=== PATIENT | female | born 1995 | race African-American/Black ===

== ENCOUNTER 2020-01-26 19:40 | Emergency (ER) | payer OTHER, SELFPAY ==
--- NOTE | ~2020-01-26 | US_ITS ---
EXAMINATION: US OB <=14 wk fetus w TV DATE: 01/26/2020 21:48 INDICATION: Vaginal bleeding during first trimester TECHNIQUE: Real-time pelvic ultrasound utilizing both a transvaginal and transabdominal probe was pe rformed. The interpreting radiologist was not present for the study. COMPARISON: None. FINDINGS: The uterus measures 8.0 x 4.8 x 5.2 cm. There is a tiny gestational sac within the endometrial compl ex with no discernible yolk sac or pole. The presumptive mean sac diameter measures 3-4 mm, whi ch correlates with an estimated gestational age of 5 weeks and 0 days. The right ovary measures 2.4 x 1.9 x 1.5 cm. The left ovary measures 2.0 x 1.4 x 1.3 cm. Vascular shaneka w identified in both ovaries on color Doppler. There is small amount of likely physiologic free fluid in the cul-de-sac. IMPRESSION: 1. 3-4 mm likely gestational sac within the endometrial complex. No discernible yolk sac or darrell e likely due to early stage of . 2. Gestational age by ultrasound based upon mean sac diame ter of 5 weeks 0 day(s) +/- 3 day(s) with ultrasound estimated date of delivery (ELLA) of 09/27/2020. Reviewed, dictated and finalized at location A. IMPRESSION: 1. 3-4 mm likely gestational sac within the endometrial complex. No discernible yolk sac or pole likely due to early stage of . 2. Gestational age by ultrasound based upon mean sac diameter of 5 weeks 0 day(s) +/- 3 day(s ) with ultrasound estimated date of delivery (ELLA) of 09/27/2020.
[2020-01-26 19:41] VITALS: BP 122/63; PULSE 92; RESP 16; TEMP 36.3; O2SAT 100
--- NOTE | 2020-01-26 20:07 | ED.GENADULT ---
HPI - General Adult General Chief complaint: Vaginal Bleeding Stated complaint: vaginal bleeding, Time Seen by Provider: 01/26/20 19:45 Source: RN notes reviewed History of Present Illness HPI narrative: Patient presents emergency department from home for vaginal bleeding. Patient states that she is G2, P1 had a home test this past week that was positive last menstrual period was December 23, 2019. Patient states she noted some mild vaginal spotting today as well as lower abdominal pain described as a cramping. She denies any fevers or chills nausea vomiting or any other symptoms. States she has had no formal work-up for this current Related Data Home Medications Medication Instructions Recorded Confirmed No Home Medications 01/26/20 01/26/20 Allergies Allergy/AdvReac Type Severity Reaction Status Date / Time No Known Allergies Allergy Unverified 01/26/20 19:43 Review of Systems Review of Systems: Narrative: Gen.: Denies fevers or chills ENT: Denies congestion Respiratory: Denies shortness of breath or cough CV: Denies chest pain or palpitations GI: Reports lower abdominal cramping nausea, emesis or diarrhea see HPI Musculoskeletal: Denies back pain or muscle pain Neuro: Denies numbness, tingling, weakness or focal weakness Skin: Denies rash Except as documented, all other systems reviewed and negative PMFSH Past Medical History Medical History (Updated 01/26/20 @ 22:21 by Nishant German DO) Patient denies significant medical history Social History Social History (Updated 01/26/20 @ 20:08 by Nishant German DO) Smoking status: Never smoker Gender identity (if verbalized by the patient): Female Exam Narrative: Exam Narrative: APPEARANCE: No acute distress, nontoxic, resting in bed EYES: EOMI HEENT: Normocephalic, atraumatic, OMM RESPIRATORY: No respiratory distress Clear to auscultation bilaterally with no rhonchi wheezing or rales. CARDIOVASCULAR: Regular rate and rhythm without murmurs rubs or gallops. ABDOMINAL: Soft, nontender, nondistended, no rebound or guarding : Normal external exam, small amount of dark maroon blood in vaginal canal cervix is closed MUSCULOSKELETAl: Moves all extremities. No clubbing, cyanosis or edema. NEURO: Awake and alert. Following commands, speech normal, no focal deficits SKIN:: Warm, dry. No rashes lesions or abrasions PSYCHIATRIC: Normal affect/mood, Course Course Emergency Course: Discussed with Dr. Cole presentation work-up. Agrees with plan for discharge and follow-up as an outpatient Discussed with patient results of workup and diagnosis. Discussed need for follow-up with primary care, proper use of medication, and reasons to return to the emergency department. Patient understands and agrees to current treatment plan Vital Signs Vital signs: Vital Signs Temperature 97.3 F L 01/26/20 19:41 Pulse Rate 92 01/26/20 19:41 Respiratory Rate 16 01/26/20 19:41 Blood Pressure 122/63 01/26/20 19:41 Pulse Oximetry 100 01/26/20 19:41 Temperature 97.3 F L 01/26/20 19:41 Pulse Rate 92 01/26/20 19:41 Respiratory Rate 16 01/26/20 19:41 Blood Pressure 122/63 01/26/20 19:41 Pulse Oximetry 100 01/26/20 19:41 Medical Decision Making Vital Signs Vital Signs: Vital Signs Temperature 97.3 F L 01/26/20 19:41 Pulse Rate 92 01/26/20 19:41 Respiratory Rate 16 01/26/20 19:41 Blood Pressure 122/63 01/26/20 19:41 Pulse Oximetry 100 01/26/20 19:41 Temperature 97.3 F L 01/26/20 19:41 Pulse Rate 92 01/26/20 19:41 Respiratory Rate 16 01/26/20 19:41 Blood Pressure 122/63 01/26/20 19:41 Pulse Oximetry 100 01/26/20 19:41 Lab Data Result diagrams: 01/26/20 20:27 Labs: Lab Results 01/26/20 01/26/20 01/26/20 Range/Units 20:27 20:27 20:27 WBC 11.1 H (4.5-10.0) K/mm3 RBC 4.10 L (4.2-5.4) M/mm3 Hgb 11.0 L (12.0-15.0) g/dL Hct 34.4 L
[2020-01-26 20:32] LABS: Basophils Absolute Auto 0.1 K/mm3 (0.0-0.1); Eosinophils Absolute Auto 0.9 K/mm3 (0-0.3); Eosinophils Percent Auto 8.2 % (0-4.4); Hematocrit 34.4 % (37.0-47.0); Immature Granulocyte Absolute 0.05 K/mm3 (0.00-0.031); Immature Granulocyte Percent A 0.4 % (0-0.5); Lymphocytes Absolute Auto 2.49 K/mm3 (0.9-3.2); Lymphocytes Percent Auto 22.4 % (18.3-44.2); Mean Corpuscular Hemoglobin 26.8 pg (26-34); Mean Corpuscular Volume 83.9 fl (80-100); Mean Platelet Volume 11.3 fl (7.4-10.4); Monocytes Absolute Auto 0.8 K/mm3 (0.1-0.6); Monocytes Percent Auto 7.3 % (2.6-8.5); Neutrophils Absolute Auto 6.8 K/mm3 (1.3-6.7); Neutrophils Percent Auto 60.7 % (45.5-73.1); Platelet Count Result 319 k/mm3 (150-375); Red Cell Distribution Width 14.6 % (11.5-14.5); White Blood Count 11.1 K/mm3 (4.5-10.0)
[2020-01-26 20:45] LABS: Ovalocytes 1+ (NORMAL); Platelet Estimate Adequate (Adequate)
[2020-01-26] MEDS: SODIUM CHLORIDE 0.9% IV 1,000 ML 999 ML IV CONT (20:50)
--- NOTE | 2020-01-26 21:10 | PC.NURSE ---
pt at ultrasound at this time
[2020-01-26 22:29] VITALS: BP 121/76; PULSE 77; RESP 16; TEMP 36.2; O2SAT 100
== END 2020-01-26 22:30 | disposition home or self-care (01) ==
PROVIDERS: Emergency Provider Emergency Medicine
DX: O20.0 Threatened abortion (principal); Z3A.01 Less than 8 weeks gestation of pregnancy
CPT/HCPCS: 36415; 76801; 76817; 81025; 84702; 85025; 85461; 96361; 96365; 99284; J0131; J7030

== ENCOUNTER 2020-02-02 23:31 | Emergency (ER) | payer OTHER, SELFPAY ==
--- NOTE | ~2020-02-02 | US_ITS ---
EXAMINATION: US OB <=14 wk fetus w TV DATE: 02/03/2020 01:49 INDICATION: Pelvic cramping and vaginal bleeding. TECHNIQUE: Real-time pelvic ultrasound utilizing both a transvaginal and transabdominal probe was pe rformed. The interpreting radiologist was not present for the study. COMPARISON: 01/26/2020 FINDINGS: The uterus measures 8.7 x 4.5 x 5.2 cm. Again seen is a 4 mm likely gestational sac within the endom etrial complex with double decidua sign but no discernible yolk sac or pole. The mean sac diame ter would correlate with an estimated gestational age of 5 weeks and 0 days. The right ovary measures 2.9 x 1.4 x 2.1 cm. The left ovary is not visualized. There is a tiny amount of free fluid in the cul-de-sac. IMPRESSION: 1. 4 mm likely intrauterine gestational sac which has not significant changed in size and which remai ns without discernible no yolk sac or pole. The absence of expected progression elevates concer n for failed . The absence of a definitive pole ectopic cannot be absolutely excluded but is considered significantly less likely. Recommend continued follow-up with serial beta -hCG levels and repeat imaging as clinically indicated. 2. Gestational age by ultrasound based upon mean sac diameter of 5 weeks 0 day(s) +/- 3 day(s) with ultrasound estimated date of delivery (ELLA) of 10/05/2020. Reviewed, dictated and finalized at location A. IMPRESSION: 1. 4 mm likely intrauterine gestational sac which has not significant changed i n size and which remains without discernible no yolk sac or pole. The abs ence of expected progression elevates concern for failed . The absence of a definitive pole ectopic cannot be absolutely excluded but is considered significantly less likely. Recommend continued follow-up with se rial beta-hCG levels and repeat imaging as clinically indicated. 2. Gestational age by ultrasound based upon mean sac diameter of 5 weeks 0 day (s) +/- 3 day(s) with ultrasound estimated date of delivery (ELLA) of 10/05/2020.
[2020-02-02 23:35] VITALS: BP 125/77; PULSE 89; RESP 15; TEMP 36.4; O2SAT 100
--- NOTE | 2020-02-02 23:42 | ED.FEMALEGU ---
HPI - Female Genitourinary General Chief complaint: Vaginal Bleeding Stated complaint: Possible Misscarrige Time Seen by Provider: 02/02/20 23:41 History of Present Illness HPI Narrative: 24 yo female at approximately 6 weeks gestation presents for vaginal bleeding. She was seen here on 01/25 for vaginal bleeding. US she likely early . She has continued to have spotting since that time and now it has turn heavier. She is also now having moderate cramping. Related Data Home Medications Medication Instructions Recorded Confirmed cephalexin 02/02/20 Allergies Allergy/AdvReac Type Severity Reaction Status Date / Time No Known Allergies Allergy Unverified 02/02/20 23:38 Review of Systems Review of Systems: All systems reviewed & are unremarkable except as noted in HPI and below Cardiovascular: Cardiovascular: Denies chest pain Respiratory: Respiratory: Denies dyspnea Gastrointestinal: Gastrointestinal: Reports abdominal pain Genitourinary: Genitourinary: Denies hematuria and Denies dysuria Neurologic: Denies weakness PMFSH Past Medical History Medical History Patient denies significant medical history Social History Social History Smoking status: Never smoker Gender identity (if verbalized by the patient): Female Exam Const: General: healthy appearing, no acute distress and alert Orientation/consciousness: patient oriented x3 HENMT: Head: normal to inspection Neck: Neck: normal visual inspection and no lymphadenopathy Chest: Chest palpation & inspection: no tenderness Resp: Effort & Inspection: normal respiratory effort Auscultation: clear to auscultation bilaterally, no rales, no rhonchi and no wheezes Cardio: Jugular venous distension: no JVD Rate: regular rate Rhythm: regular rhythm Heart sounds: no murmurs GI: Inspection: non-distended GI Palp: Yes Soft to palpation and No Tenderness to palpation present (GI) Skin: General skin exam: normal color Neuro: General: patient oriented x3 and moves all extremities Speech: normal speech Extrem: General: no edema Psych: Appearance: well kempt Affect: normal affect Course Vital Signs Vital signs: Vital Signs Temperature 36.4 C 02/02/20 23:35 Pulse Rate 89 02/02/20 23:35 Respiratory Rate 15 02/02/20 23:35 Blood Pressure 125/77 02/02/20 23:35 Pulse Oximetry 100 02/02/20 23:35 Temperature 36.4 C 02/02/20 23:35 Pulse Rate 77 02/03/20 02:31 Respiratory Rate 18 02/03/20 02:31 Blood Pressure 122/82 02/03/20 02:31 Pulse Oximetry 100 02/03/20 02:31 MDM - Female Genitourinary MDM Narrative Medical decision making narrative: US from last visit showed likely early , but not definitive. Obtain US today to r/o ectopic. Shows less than expected interval increase in size. bHcg increased, but less than expected. Case discussed with Dr. Mccormick. She can follow-up i the next few days as planned. Medical Records Attestation: I reviewed the patient's medical records. Lab Data Attestation: I reviewed the patient's lab results. Labs: Lab Results 02/03/20 02/03/20 Range/Units 00:02 00:06 Beta HCG, Quant 1935.60 mIU/ML Urine Color Straw (Yellow) Urine Appearance Clear (Clear) Urine pH 7.0 (5.0-9.0) Ur Specific Duncan 1.018 (1.001-1.035) Urine Protein Negative (Negative) mg/dL Urine Glucose (UA) Negative (Negative) mg/dL Urine Ketones Negative (Negative) mg/dL Ur Blood (Man) 3+ H (Negative) Urine Nitrate Negative (Negative) Urine Bilirubin Negative (Negative) Urine Urobilinogen Negative (<2.0) mg/dL Leukocyte Esterase Rfl Trace H (Negative) RICARDA/UL Urine RBC >75 H (0-2) /hpf Urine WBC 0-3 /hpf Ur Squamous Epith Cells Few (Few) /hpf Urine Mucus Rare /lpf Discharge Plan Discharge Clinical
[2020-02-03 00:25] LABS: Add Urine Microscopic? YES; Appearance Urine Clear (Clear); Bilirubin Urine Negative (Negative); Blood Urine 3+ (Negative); Color Urine Straw (Yellow); Glucose Urine UA Negative (Negative); Ketones Urine Negative (Negative); Leukocyte Esterase Ur Trace LEU/UL (Negative); Mucus Urine Rare /lpf; Nitrate Urine Negative (Negative); Protein Urine Negative (Negative); RBC Urine >75 /hpf (0-2); Specific Grav Ur 1.018 (1.001-1.035); Squamous Epithelial Cell Urine Few /hpf (Few); Urobilinogen Urine Negative mg/dL (<2.0); WBC Urine 0-3 /hpf
[2020-02-03 01:15] VITALS: BP 119/89; PULSE 80; RESP 16; O2SAT 99
[2020-02-03 02:31] VITALS: BP 122/82; PULSE 77; RESP 18; O2SAT 100
== END 2020-02-03 02:35 | disposition home or self-care (01) ==
PROVIDERS: Emergency Provider Emergency Medicine
DX: O20.0 Threatened abortion (principal); Z3A.01 Less than 8 weeks gestation of pregnancy
CPT/HCPCS: 36415; 76801; 76817; 81001; 84702; 99284

== ENCOUNTER 2020-02-27 15:19 | Emergency (ER) | payer OTHER, SELFPAY ==
[2020-02-27 16:11] VITALS: BP 123/59; PULSE 75; RESP 15; TEMP 36.7; O2SAT 100
--- NOTE | 2020-02-27 16:30 | ED.SKABFB ---
HPI - Skin/Abscess/Foreign Bdy General Chief complaint: Skin/Abscess/Foreign Body <Everton Evangelista PA-C - Last Filed: 02/27/20 16:40> Stated complaint: rash <DWAYNE Chance Last Filed: 02/27/20 16:40> Time Seen by Provider: 02/27/20 16:17 <Everton Evangelista PA-C - Last Filed: 02/27/20 16:40> Source: patient <Everton Evangelista PA-C - Last Filed: 02/27/20 16:40> Mode of arrival: ambulatory <DWAYNE Chance Last Filed: 02/27/20 16:40> Limitations: no limitations <DWAYNE Chance Last Filed: 02/27/20 16:40> History of Present Illness HPI narrative: Patient is a 24-year-old female who presents to emergency department for evaluation of rash that is been present for several days noting small pustules in the armpits and extremities patient is unsure as to the etiology of the cause denies other family members with similar occurrence presents per private vehicle in no distress <Everton Evangelista PA-C - Last Filed: 02/27/20 16:40> Related Data Home medications: Home Medications Medication Instructions Recorded Confirmed cephalexin 02/02/20 <DWAYNE Chance Last Filed: 02/27/20 16:40> Allergies/Adverse reactions: Allergies Allergy/AdvReac Type Severity Reaction Status Date / Time No Known Allergies Allergy Unverified 02/02/20 23:38 <Everton Evangelista PA-C - Last Filed: 02/27/20 16:40> Review of Systems Review of Systems: All systems reviewed & are unremarkable except as noted in HPI and below <Everton Evangelista PA-C - Last Filed: 02/27/20 16:40> PMFSH Past Medical History Medical History: Medical History Patient denies significant medical history <DWAYNE Chance Last Filed: 02/27/20 16:40> Social History Social History: Social History Smoking status: Never smoker Gender identity (if verbalized by the patient): Female <DWAYNE Chance Last Filed: 02/27/20 16:40> Exam Narrative: Exam Narrative: GENERAL: Well-appearing, well-nourished, and in no acute distress. HEAD: Normocephalic, atraumatic. EYES: PERRLA and EOMI. ENT: Nares clear, no rhinorrhea or epistaxis. Mucous membranes moist. CHEST: Clear to auscultation. No respiratory distress. No wheezes rales or rhonchi HEART: Regular rate and rhythm. No murmur heard. EXTREMITIES: Normal range of motion. No edema. SKIN: Warm, dry, small pustules in the axilla some on the torso extremity and breast NEURO: No focal deficits. Alert and oriented x3. PSYCH: Normal mood and affect. <DWAYNE Chance Last Filed: 02/27/20 16:40> Course Course Emergency Course: Patient in the room in no distress aware of case findings treatment plan and diagnosis agreeing to follow-up as directed with primary care <DWAYNE Chance Last Filed: 02/27/20 16:40> Vital Signs Vital signs: Vital Signs Temperature 98.1 F 02/27/20 16:11 Pulse Rate 75 02/27/20 16:11 Respiratory Rate 15 02/27/20 16:11 Blood Pressure 123/59 L 02/27/20 16:11 Pulse Oximetry 100 02/27/20 16:11 Temperature 98.1 F 02/27/20 16:11 Pulse Rate 75 02/27/20 16:11 Respiratory Rate 15 02/27/20 16:11 Blood Pressure 123/59 L 02/27/20 16:11 Pulse Oximetry 100 02/27/20 16:11 <DWAYNE Chance Last Filed: 02/27/20 16:40> Vital Signs Temperature 98.1 F 02/27/20 16:11 Pulse Rate 75 02/27/20 16:11 Respiratory Rate 15 02/27/20 16:11 Blood Pressure 123/59 L 02/27/20 16:11 Pulse Oximetry 100 02/27/20 16:11 Temperature 98.1 F 02/27/20 16:11 Pulse Rate 75 02/27/20 16:11 Respiratory Rate 15 02/27/20 16:11 Blood Pressure 123/59 L 02/27/20 16:11 Pulse Oximetry 100 02/27/20 16:11 <Mickie Camilo MD - Last Filed: 02/27/20 16:49> MDM - Skin/Abscess/Foreign Bdy MDM Narrative M
[2020-02-27 16:51] VITALS: RESP 20; O2SAT 100
== END 2020-02-27 16:52 | disposition home or self-care (01) ==
PROVIDERS: Emergency Provider Emergency Medicine
DX: L73.9 Follicular disorder, unspecified (principal)
CPT/HCPCS: 99283

== ENCOUNTER 2020-06-25 13:51 | Emergency (ER) | payer OTHER, SELFPAY ==
[2020-06-25 13:56] VITALS: BP 127/66; PULSE 94; RESP 20; TEMP 36.1; O2SAT 97
--- NOTE | 2020-06-25 14:42 | ED.FEMALEGU ---
HPI - Female Genitourinary General Chief complaint: Vaginal Bleeding Stated complaint: vaginal bleeding and cramping Time Seen by Provider: 06/25/20 14:09 Source: patient Mode of arrival: ambulatory Limitations: no limitations History of Present Illness HPI Narrative: 24 years old -[place] female presents with vaginal bleeding started early this morning. Last menstrual cycle was 2 weeks ago. Patient's boyfriend got killed yesterday, Patient want to make sure if she is or not Patient denies any fever, chills, nausea, vomiting, chest pain, shortness of breath. Patient denies any heavy vaginal bleeding or blood clots. Related Data Home Medications Medication Instructions Recorded Confirmed No Home Medications 06/25/20 06/25/20 Allergies Allergy/AdvReac Type Severity Reaction Status Date / Time No Known Allergies Allergy Unverified 06/25/20 14:34 Review of Systems Review of Systems: Narrative: CONSTITUTIONAL: Denies fever, chills, or sweats. EYES: Denies visual changes, redness, or discharge. ENT: Denies rhinorrhea, congestion, sore throat, or otalgia. CARDIOVASCULAR: Denies chest pain, palpitations, or edema. RESPIRATORY: Denies cough or dyspnea. GASTROINTESTINAL: Denies abdominal pain, nausea, vomiting, or diarrhea. GENITOURINARY: Denies dysuria or hematuria. SKIN: Denies rash or itching. MUSCULOSKELETAL: Denies back pain, joint pain, or myalgia. NEUROLOGIC: Denies headache, numbness, or weakness. PSYCHIATRIC: Denies anxiety or depression. PMFSH Past Medical History Medical History (Updated 06/25/20 @ 16:08 by Triny Chilel MD) Patient denies significant medical history Social History Social History Smoking status: Never smoker Gender identity (if verbalized by the patient): Female Exam Narrative: Exam Narrative: General appearance: Well-developed, well-nourished Skin: Normal color Head: Normocephalic, nontraumatic Eyes: Clear conjunctiva ENT: Oropharynx normal, ears normal, nose normal Neck: Supple, nontender Chest and respiratory: Airway patent, no respiratory distress, no accessory muscle use Heart: Regular rate/rhythm Abdomen: Soft, nontender, no organomegaly, quiet bowel sounds Vascular: Normal peripheral pulses, normal capillary refill. Musculoskeletal: Normal range of motion, nontender back Neurologic: Alert and oriented ?3, [employer]LECT[employer] is normal as tested, no gross motor deficit : External Female Exam: normal external appearance Speculum Exam - Vagina: normal appearance of the vagina and vaginal bleeding (Fresh red bright blood, mild bleeding) Speculum Exam - Cervix: normal appearance of the cervix Course Course Emergency Course: Stable Vital Signs Vital signs: Vital Signs Temperature 36.1 C L 06/25/20 13:56 Pulse Rate 94 06/25/20 13:56 Respiratory Rate 06/25/20 13:56 Blood Pressure 127/66 06/25/20 13:56 Pulse Oximetry 97 06/25/20 13:56 Temperature 36.1 C L 06/25/20 13:56 Pulse Rate 94 06/25/20 13:56 Respiratory Rate 20 06/25/20 13:56 Blood Pressure 127/66 06/25/20 13:56 Pulse Oximetry 97 06/25/20 13:56 MDM - Female Genitourinary MDM Narrative Medical decision making narrative: Patient presents with vaginal bleeding which could be her regular menstrual cycle versus miscarriage or stress induced uterine bleeding. Labs, serum beta hCG ordered Differential Diagnosis Differential diagnosis: Likely other (Menstrual cycle, dysfunctional uterine bleeding, grief reaction) Lab Data Result diagrams: 06/25/20 14:35 Labs: Lab Results 06/25/20 06/25/20 06/25/20 Range/Units 14:35 14:35 14:3
[2020-06-25 14:43] LABS: Basophils Absolute Auto 0.1 K/mm3 (0.0-0.1); Basophils Percent Auto 0.7 % (0.2-1.2); Eosinophils Absolute Auto 0.4 K/mm3 (0-0.3); Eosinophils Percent Auto 4.5 % (0-4.4); Hematocrit 36.3 % (37.0-47.0); Hemoglobin 11.7 g/dL (12.0-15.0); Immature Granulocyte Absolute 0.02 K/mm3 (0.00-0.031); Immature Granulocyte Percent A 0.2 % (0-0.5); Lymphocytes Percent Auto 21.5 % (18.3-44.2); Mean Corpuscular HGB Conc 32.2 g/dl (32-36); Mean Corpuscular Hemoglobin 26.8 pg (26-34); Mean Corpuscular Volume 83.3 fl (80-100); Mean Platelet Volume 11.6 fl (7.4-10.4); Monocytes Absolute Auto 0.8 K/mm3 (0.1-0.6); Monocytes Percent Auto 7.7 % (2.6-8.5); Neutrophils Absolute Auto 6.4 K/mm3 (1.3-6.7); Neutrophils Percent Auto 65.4 % (45.5-73.1); Platelet Count Result 318 k/mm3 (150-375); Red Blood Count 4.36 M/mm3 (4.2-5.4); Red Cell Distribution Width 15.3 % (11.5-14.5); White Blood Count 9.8 K/mm3 (4.5-10.0)
[2020-06-25 14:54] LABS: Add Urine Microscopic? YES; Appearance Urine Cloudy (Clear); Bilirubin Urine Negative (Negative); Blood Urine 3+ (Negative); Color Urine Red (Yellow); Glucose Urine UA Negative (Negative); Ketones Urine 1+ mg/dL (Negative); Leukocyte Esterase Ur Negative LEU/UL (Negative); Mucus Urine Heavy /lpf; Nitrate Urine Negative (Negative); Protein Urine 3+ mg/dL (Negative); RBC Urine >75 /hpf (0-2); Squamous Epithelial Cell Urine Many /hpf (Few); Urobilinogen Urine Negative mg/dL (<2.0); WBC Urine >75 /hpf
[2020-06-25 15:03] LABS: Specific Grav Ur 1.035 (1.001-1.035)
[2020-06-25 15:13] LABS: Beta HCG Quantitative < 2.39 mIU/ML
[2020-06-25 16:49] VITALS: BP 128/60; PULSE 93; RESP 20; O2SAT 98
== END 2020-06-25 16:52 | disposition home or self-care (01) ==
PROVIDERS: Emergency Provider Emergency Medicine
DX: N93.8 Other specified abnormal uterine and vaginal bleeding (principal); F43.20 Adjustment disorder, unspecified
CPT/HCPCS: 36415; 81001; 81025; 84702; 85025; 87086; 87088; 99284